=== PATIENT | female | born 1975 | race Caucasian/White ===

== ENCOUNTER 2018-05-25 08:47 | Outpatient (CLI) | payer OTHER ==
--- NOTE | 2018-05-25 12:14 | RAD ---
BIPHASIC ESOPHAGRAM: HISTORY: Gastroesophageal reflux disease. The patient is status post vertical sleeve gastrectomy. FINDINGS: Swallowing is grossly normal. There is unobstructed flow of contrast from the esophagus into the sto mach. No obstructing mass or diverticulum is seen. A small hiatal hernia is noted with mild spontan eous GE reflux. A 12 mm tablet was administered, which got stuck in the region of the GE junction an d dissolved on the [id number] image. IMPRESSION: 1. Small hiatal hernia and mild gastroesophageal reflux. 2. Focal narrowing at the gastroesophageal junction. POS: [facility]
== END 2018-05-25 08:48 | disposition home or self-care (01) ==
LOC: RAD 08:47
PROVIDERS: ATTEND Surgery
DX: K21.9 Gastro-esophageal reflux disease without esophagitis (principal); K44.9 Diaphragmatic hernia without obstruction or gangrene
CPT/HCPCS: 74220